=== PATIENT | female | born 2000 | race Caucasian/White ===

== ENCOUNTER 2020-05-22 10:15 | Inpatient (IN) | payer MEDICAID, OTHER ==
[~2020-05-22] VITALS: Ht 154.9 cm; Wt 78.1 kg
[2020-05-22] MEDS ORDERED: ONDANSETRON HCL 4 MG/2 ML VIAL ONE (10:39)
[2020-05-22] MEDS ORDERED: MORPHINE SULFATE 4 MG/ML SYR/VIAL ONE (10:39)
[2020-05-22 10:44] LABS: Basophils # (auto) 0 10 ^3/uL (0-0.2); Basophils % (auto) 0.2 % (0.0-2.0); Eosinophils # (auto) 0 10 ^3/uL (0-0.8); Eosinophils % (auto) 0.4 % (0.0-7.0); Lymphocytes # (auto) 1.5 10 ^3/uL (0.4-5.4); Lymphocytes % (auto) 12.9 % (10.0-50.0); Mean Corpuscular Hemoglobin 31.1 pg (28.0-32.0); Mean Corpuscular Volume 88.8 fL (80.0-100.0); Monocytes # (auto) 0.7 10 ^3/uL (0-1.3); Monocytes % (auto) 6.4 % (0.0-12.0); Neutrophils # (auto) 9.1 10 ^3/uL (1.6-8.6); Neutrophils % (auto) 80.1 % (37.0-80.0); Nucleated Red Blood Cells % 0.5 %; Red Blood Cells 4.84 10^6/uL (4.0-5.20); White Blood Cell 11.3 10^3/uL (4.4-10.8)
[2020-05-22] MEDS ORDERED: ONDANSETRON HCL 4 MG/2 ML VIAL IV ONE (10:45)
[2020-05-22] MEDS ORDERED: MORPHINE SULFATE 4 MG/ML SYR/VIAL IV ONE (10:45)
[2020-05-22] MEDS ORDERED: SODIUM CHLORIDE 0.9% 1,000 ML IV ONE (10:45)
[2020-05-22 10:54] LABS: Urine Bacteria FEW /hpf (None Seen); Urine Blood 3+ /uL (Negative); Urine Mucus FEW (None Seen); Urine Specific Gravity 1.013 (1.001-1.035); Urine WBC 18 /hpf (0 - 5)
[2020-05-22 11:03] LABS: INR 1.04 (0.9-1.15); Partial Thromboplastin Time 25.5 sec (23.0-31.2)
[2020-05-22] MEDS ORDERED: LORazepam 2MG/ML-1ML VIAL ONE (11:42)
[2020-05-22] MEDS ORDERED: LORazepam 2MG/ML-1ML VIAL IV ONE (11:45)
[2020-05-22 12:39] LABS: Lactic Acid w/Reflex 3.8 mmol/L (0.4-2.0)
[2020-05-22 12:45] LABS: Chloride 110 mmol/L (98-107); Sodium 140 mmol/L (136-145)
[2020-05-22 13:08] LABS: Alanine Aminotransferase 22 U/L (13-56); Albumin 4.2 g/dL (3.4-5.0); Alkaline Phosphatase 51 U/L (45-117); Amylase 31 U/L (25-115); Anion Gap 13 (5-15); Aspartate Aminotransferase 10 U/L (15-37); BUN/Creatinine Ratio 13.1; Bilirubin, Total 0.5 mg/dL (0.2-1.0); Blood Urea Nitrogen 11 mg/dL (7-18); Calcium 8.9 mg/dL (8.5-10.1); Carbon Dioxide 17 mmol/L (21-32); GFR African American 111 mL/min; GFR Non-African American 92 mL/min; Glucose 147 mg/dL (74-106); Lipase 65 U/L (73-393); Magnesium 1.9 mg/dL (1.6-2.6); Total Protein 7.8 g/dL (6.4-8.2)
[2020-05-22] MEDS ORDERED: TAMSULOSIN HYDROCHLORIDE 0.4 MG CAP PO SCH (13:15)
[2020-05-22] MEDS ORDERED: ACETAMINOPHEN 500 MG TAB PO PRN (13:15)
[2020-05-22] MEDS: SODIUM CHLORIDE 0.9% 1,000 ML IV SCH ×2 (13:15→21:15)
[2020-05-22] MEDS ORDERED: HYDROcodone-ACET 5/325MG TAB PO PRN (13:15)
[2020-05-22] MEDS: ONDANSETRON HCL 4 MG/2 ML VIAL IV PRN (14:07)
[2020-05-22] MEDS: MORPHINE SULFATE INJECTION 2 MG/ML SYRG IV PRN (14:07)
[2020-05-22 17:41] VITALS: BP 126/71
[2020-05-22] MEDS: TAMSULOSIN HYDROCHLORIDE 0.4 MG CAP PO SCH (17:56)
[2020-05-22 20:00] VITALS: BP 112/69
[2020-05-22 22:00] VITALS: BP 112/69
[2020-05-23] MEDS: MORPHINE SULFATE INJECTION 2 MG/ML SYRG IV PRN ×3 (03:00→19:44)
[2020-05-23 05:10] VITALS: BP 113/70
[2020-05-23] MEDS: SODIUM CHLORIDE 0.9% 1,000 ML IV SCH ×3 (06:17→23:11)
[2020-05-23 08:15] VITALS: BP 95/54
[2020-05-23 09:00] VITALS: BP 95/54
[2020-05-23] MEDS: cefTRIAXone 1GM/50ML D5W 50 ML IV SCH (09:07)
[2020-05-23] MEDS: FAMOTIDINE 20 MG TAB PO SCH (09:08)
[2020-05-23] MEDS ORDERED: SODIUM CHLORIDE 0.9% 1,000 ML IV ONE (10:45)
[2020-05-23] MEDS ORDERED: MANNITOL FTV 25% 12.5 GM/50 ML 50 ML IV ONE ×2 (10:45→16:15)
[2020-05-23 13:00] VITALS: BP 124/65
[2020-05-23] MEDS ORDERED: LORazepam 0.5 MG TAB PO ONE (13:00)
[2020-05-23] MEDS ORDERED: fentaNYL CITRATE 100 MCG/2 ML VL ONE (15:16)
[2020-05-23] MEDS ORDERED: PROPOFOL 10 MG/ML 20 ML IV ONE (15:16)
[2020-05-23] MEDS ORDERED: DexAMETHasone SOD PHOS 10MG/1ML VIAL INJ ONE (15:16)
[2020-05-23] MEDS ORDERED: MEPERIDINE HCL (25 MG/ML) 1ML VIAL ONE (15:16)
[2020-05-23] MEDS ORDERED: MIDAZOLAM HCL 2MG/2ML 2ml VIAL (1mg/ml) ONE (15:16)
[2020-05-23] MEDS ORDERED: ceFAZolin 1GM/50ML 50 ML IV ONE (15:28)
[2020-05-23] MEDS ORDERED: METOCLOPRAMIDE HCL 5MG/ml INJ 2ml VIAL IV ONE (15:30)
[2020-05-23] MEDS ORDERED: PHENYLEPHRINE HCL 10 MG/ML VL IV ONE (15:30)
[2020-05-23] MEDS ORDERED: KETOROLAC TROMETH 30 MG/ML 1ML VIAL IV ONE (15:45)
[2020-05-23] MEDS ORDERED: ePHEDrine SULFATE 50 MG/ML AMP IV PRN (15:45)
[2020-05-23] MEDS ORDERED: ONDANSETRON HCL 4 MG/2 ML VIAL IV PRN (15:45)
[2020-05-23] MEDS ORDERED: LABETALOL HCL 5 MG/ML 4ML SYRINGE IV PRN (15:45)
[2020-05-23] MEDS ORDERED: hydrALAZINE HCL 20 MG/ML VL IV PRN (15:45)
[2020-05-23] MEDS ORDERED: MIDAZOLAM HCL 2MG/2ML 2ml VIAL (1mg/ml) IV PRN (15:45)
[2020-05-23] MEDS ORDERED: MORPHINE SULFATE 4 MG/ML SYR/VIAL IV PRN (15:45)
[2020-05-23] MEDS ORDERED: HYDROmorphone HCL 2 MG/ML VL IV PRN (15:45)
[2020-05-23] MEDS: TAMSULOSIN HYDROCHLORIDE 0.4 MG CAP PO SCH (17:57)
[2020-05-23] MEDS: ONDANSETRON HCL 4 MG/2 ML VIAL IV PRN (17:58)
[2020-05-23 22:24] VITALS: BP 115/61
[2020-05-24] MEDS: SODIUM CHLORIDE 0.9% 1,000 ML IV SCH (05:02)
[2020-05-24 05:13] VITALS: BP 122/65
[2020-05-24 08:30] VITALS: BP 110/83
[2020-05-24] MEDS: FAMOTIDINE 20 MG TAB PO SCH (09:25)
[2020-05-24] MEDS: cefTRIAXone 1GM/50ML D5W 50 ML IV SCH (09:25)
[2020-05-24 10:55] VITALS: BP 110/83
== END 2020-05-24 11:20 | disposition home or self-care (01) | DRG 690 ==
LOC: ER 10:15 → OVERFLOW 10:16 → EAST 17:20 → CENTRAL 05-23 03:06
PROVIDERS: ADMIT Nurse Practitioner Acute Care; ATTEND Family Medicine
PROC: 0TF6XZZ Fragmentation in Right Ureter, External Approach (ICD-10-PCS; principal; 2020-05-23 15:46)
DX: N13.6 Pyonephrosis (principal); E66.9 Obesity, unspecified; F12.90 Cannabis use, unspecified, uncomplicated; Z20.822 Contact with and (suspected) exposure to COVID-19; F41.9 Anxiety disorder, unspecified; J45.909 Unspecified asthma, uncomplicated; Z88.1 Allergy status to other antibiotic agents; Z68.32 Body mass index [BMI] 32.0-32.9, adult
CPT/HCPCS: 36415; 74018; 74176; 80053; 81001; 81025; 82150; 83605; 83690; 83735; 84484; 84702; 85025; 85610; 85730; 87040; 87086; 87426; 96374; 96375; 96376; G0378; J0690; J0696; J1100; J2250; J2405; J2704